=== PATIENT | male | born 1955 | race Caucasian/White ===

== ENCOUNTER 2019-02-03 11:04 | Emergency (ER) | payer MEDICARE, BC ==
--- OUTSIDE RECORDS SUMMARY | 2019-02-03 11:13 | XMS REPORT | Continuity of Care Document ---
:1955 External Reference #:[id number] Author Name Sandra Vásquez Care Team Providers Name Role Phone Rufus Cope MD Primary Care Physician Unavailable Payers Date Identification Numbers Payment Provider Subscriber Policy Number: [id number] Medicare Mike Lunsford PayID: [id number] [address] [place] [address] Policy Number: [id number] [facility] Mike Lunsford PayID: [id number] [address] [place] [address] Advance Directives Description No Information Available Problems Date Description Provider Status Onset: 01/21/2019 Localized, 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 Family History Date Family Member(s) Observation Comments General Heart Disease General Hypertension Social History Type Date Description Comments Sex Unknown Marital Status Lives With Spouse Occupation Retired Tobacco Use Start: Unknown End: Unknown Patient is a former smoker Smoking Status Reviewed: 01/21/19 Patient is a former smoker Allergies, Adverse Reactions, Alerts Date Description Reaction Status Severity Comments 01/21/2019 Penicillin Active rash 01/21/2019 Dye Active rash Medications Medication Date Status Form Strength Qnty SIG Indications Ordering Provider Diltiazem HCL ER Active Caps ER 240mg 1 by Unknown Beads /0000 24HR mouth every day Hydrochlorothiazide Active Unknown /0000 Lansoprazole Active Capsules 30mg 1 by Unknown /0000 DR mouth every day Aspirin 00 Active Unknown /0000 Pravastatin Sodium Active Tablets 40mg take one Unknown /0000 tablet by mouth every evening Irbesartan Active Tablets 150mg 1 by Unknown /0000 mouth every day Medications Administered in Office Medication Date Status Form Strength Qnty SIG Indications Ordering Provider Triamcinolone 01/21/ Administered Injection Héctor (Kenalog) 2019 MD Pia Immunizations Description No Information Available Vital Signs Date Vital Result Comment 01/21/2019 9:32am Height 70 inches 5'10" Weight 210.00 lb Heart Rate 64 /min Respiratory Rate 16 /min Body Temperature 97.7 F Pain Level 4 BMI (Body Mass Index) 30.1 kg/m2 Results Description No Information Available Procedures Description No Information Available Encounters Description No Information Available Plan of Treatment Future Appointment(s):03/24/2019 9:15 am - H[facility]ctor Palacio MD at [facility]01/21/2019 - Héctor Palacio, [id number] Post-traumatic osteoarthritis, right ankle and footNew Xrays:Inj/Aspir, Intermediate Joint/ Bursa W/ US, Ordered: 01/21/19Follow up:Follow Up: 2 months
[2019-02-03 11:16] VITALS: BP 115/70
--- NOTE | 2019-02-03 12:42 | UC ---
Headache HPI - HPI Summary HPI Summary: 63-year-old male comes in with chief complaint of a headache. It's a frontal headache that started about 2 weeks ago. It came on fairly quickly over the course of the day but he does not relate any thunderclap headache onset. Pain is worse is up to an 8 out of 10. He has used Excedrin migraine which does help with the headache. He does have some rhinorrhea. No ear pain no fevers no sore throat no cough or chest congestion. No history of migraines. 4 days ago he had some tenderness in his right confucianist. He said at that time it was quite severe. He still has some bitemporal tenderness but it's much less now. No tenderness on the left side. No rash. The headache does go all the way across the forehead is not on just one side of the head. The light does bother his eyes. No complaint of vision change or difficulty with speech or weakness or numbness. Denies any trauma. No complaint of neck pain. He has had some nausea. Has not found any attached ticks. No rashes. - History Of Current Complaint Chief Complaint: UCHeadache Stated Complaint: HEADACHE/SINUS Time Seen by Provider: 02/03/19 11:51 Pain Intensity: 8 - Allergies/Home Medications Allergies/Adverse Reactions: Allergies Allergy/AdvReac Type Severity Reaction Status Date / Time Bleach (Sodium Hypochlorite) Allergy Rash Verified 02/03/19 11:16 Penicillins Allergy Rash Verified 02/03/19 11:20 CARDIAC CATH DYE Allergy Hives Uncoded 02/03/19 11:16 Home Medications: Home Medications Aspirin/Acetaminophen/Caffeine [Excedrin Extra Strength Caplet] 1 each PO ONCE PRN 02/03/19 [History Confirmed 02/03/19] Irbesartan (NF) [Avapro (NF)] 1 tab PO DAILY 02/03/19 [History Confirmed ] Pravastatin Sodium 40 mg PO DAILY 02/03/19 [History Confirmed 02/03/19] dilTIAZem HCl [Diltiazem 24Hr Cd] 240 mg PO DAILY 02/03/19 [History Confirmed ] PMH/Surg Hx/FS Hx/Imm Hx Previously Healthy: Yes Cardiovascular History: Hypertension GI/ History: Gastroesophageal Reflux - Surgical History Surgical History: Yes Surgery Procedure, Year, and Place: LSP - L4 - RUPTURED DISC- 2013. Rt SHOULDER - RCT. TRIPLE BYPASS - 2011. CARDIAC STENT - -1998. CHOLECYSTECTOMY. Rt ANKLE - SCREWS - Family History Known Family History: Positive: Non-Contributory - Social History Alcohol Use: Daily Alcohol Amount: "4 beers 5 days a week" Substance Use Type: None Smoking Status (MU): Former Smoker Have You Smoked in the Last Year: No When Did the Patient Quit Smoking/Using Tobacco: 11/12/2010 Review of Systems All Other Systems Reviewed And Are Negative: Yes Constitutional: Positive: Negative Skin: Positive: Negative Eyes: Positive: Negative, Photophobia ENT: Positive: Nasal Discharge, Sinus Congestion. Negative: Sore Throat, Ear Ache Respiratory: Positive: Negative Cardiovascular: Positive: Negative Gastrointestinal: Positive: Nausea Motor: Positive: Negative Neurovascular: Positive: Negative Musculoskeletal: Positive: Negative Neurological: Positive: Headache Psychological: Positive: Negative Is Patient Immunocompromised?: No Physical Exam Triage Information Reviewed: Yes Appearance: Well-Appearing, No Pain Distress, Well-Nourished Vital Signs: Initial Vital Signs Temp 96.7 F 02/03/19 11:13 Pulse 52 02/03/19 11:13 Resp 18 02/03/19 11:13 BP 115/70 02/03/19 11:13 Pulse Ox 100 02/03/19 11:13 Vital Signs Reviewed: Yes Eye Exam: Normal Eyes: Positive: Conjunctiva Clear, Other: - PERRLA/EOMI ENT Exam: Normal ENT: Positive: Pharynx normal, TMs normal Neck exam: Normal Neck: Positive: Supple Respiratory: Positive: Lungs clear, Normal breath sounds, No respiratory distress Cardiovascular: Positive: RRR Musculoskeletal Exam: Normal Musculoskeletal: Positive: Strength Intact, ROM Intact Neurological Exam: Normal Neurological: Positive: Alert, Muscle Tone Normal Psychological Exam: Normal Psychological: Positive: Age Appropriate Behavior Skin Exam: Normal Headache Course/Dx - Course Course Of Treatment: Patient Name: CHARLES SOLORZANO Medical Record#: [id number] Ordering Physician: Pascual Kincaid MD Acct.#: [id number] : 1955 Age: 63 Sex: M Location: [facility] Exam Date: 02/03/19 1201 ADM Status: REG ER Order Information: CT BRAIN WO Accession Number: [id number] CPT: 99781 INDICATION: Frontal headache. COMPARISON: There are no relevant prior studies available for comparison. TECHNIQUE: Contiguous axial sections of the brain were obtained from the skull base to the vertex without contrast. The exam is slightly limited due to positioning. FINDINGS: The ventricles, cisterns and sulci are within normal limits. No significant focal abnormality or mass effect is seen. There is no evidence for hemorrhage. The visualized portion of the paranasal sinuses and mastoid air cells appear clear. IMPRESSION: SLIGHTLY LIMITED EXAM, NO EVIDENCE FOR ACUTE INTRACRANIAL ABNORMALITY. <Electronically signed by Johnny Guardado MD in OV> 02/03/19 [address] results with the patient. 4 days ago the patient said that his right temporal was very tender to palpation. It continues to be tender but much less so. No tenderness in the left confucianist. We discussed the possibility of temporal arteritis and to diagnose it if he would require blood work. I propose that we checked blood work today. Patient declined checking blood work today he prefers to be treated with the antibiotic and the Ortiz first to see if he gets better. If he does not improve he plans on following up with his primary care doctor. I let him know that if he got worse at any time he needs to get reevaluated again right away. - Differential Dx/Diagnosis Provider Diagnosis: Headache Discharge - Sign-Out/Discharge Documenting (check all that apply): Patient Departure All imaging exams completed and their final reports reviewed: Yes - Discharge Plan Condition: Stable Disposition: HOME Prescriptions: DOXYcycline CAP(*) [DOXYcycline 100MG CAP(*)] 100 mg PO BID #20 cap Fluticasone NASAL SPRAY 50MCG* [Flonase NASAL SPRAY 50MCG*] 2 spray BOTH NARES DAILY #1 btl Patient Education Materials: Acute Headache (ED) Referrals: Rufus Cope MD [Primary Care Provider] - Additional Instructions: FOLLOW UP WITH YOUR DOCTOR WITHIN A WEEK IF NOT COMPLETELY IMPROVED. GO TO THE EMERGENCY DEPARTMENT FOR ANY WORSENING OF YOUR CONDITION; PAIN, WEAKNESS, NUMBNESS, FEVERS, VISION OR SPEECH CHANGES OR QUESTIONS OR CONCERNS. - Billing Disposition and Condition Condition: STABLE Disposition: Home
== END 2019-02-03 12:45 | disposition home or self-care (01) ==
LOC: UCEAST 11:04
DX: R51 Headache (principal); I10 Essential (primary) hypertension; R11.0 Nausea; Z79.899 Other long term (current) drug therapy; Z79.82 Long term (current) use of aspirin; Z91.09 Other allergy status, other than to drugs and biological substances; Z88.0 Allergy status to penicillin; Z91.041 Radiographic dye allergy status; Z87.891 Personal history of nicotine dependence
CPT/HCPCS: 70450; 99212; G0463